=== PATIENT | male | born 1990 | race Caucasian/White ===

== ENCOUNTER 2023-04-15 16:35 | Outpatient (OUT) | payer OTHER, SELFPAY ==
--- NOTE | 2023-04-15 | XR_ITS ---
The [address] [address] Patient Name: ANGELIQUE CARRASCO MRN: [id number] date: 1990 Sex: M Assigned Patient Location: RAD Current Patient Location: RAD Accession/Order Number: [id number] Exam Date: 04/15/2023 16:45 Report Date: 04/15/2023 19:38 At the request of: ANDRADE MAS Procedure: XR knee RT 3V EXAM: XR knee RT 3V HISTORY: Right knee pain for the past 4 days with limited range of motion. M23.90 COMPARISON: None. TECHNIQUE: 3 views of the right knee were obtained. FINDINGS: There is no evidence of an acute fracture or dislocation. The joint spaces are intact. No osteochondral injury is identified. No focal osseous abnormality is identified. There is no evidence of a joint effusion. XR/XR knee RT 3V IMPRESSION: No acute fracture or dislocation. No significant degenerative changes are present, and there is no evidence of a joint effusion. Electronically authenticated by: DAVID JIMENEZ Date: 04/15/2023 19:38
== END 2023-04-15 16:36 | disposition home or self-care (01) ==
LOC: RAD 16:37
PROVIDERS: PCP Family Medicine; Visit Provider Family Medicine
DX: M23.90 Unspecified internal derangement of unspecified knee (principal)
CPT/HCPCS: 73562

== ENCOUNTER 2023-05-12 15:15 | Outpatient (OUT) | payer OTHER, SELFPAY ==
--- NOTE | 2023-05-12 15:26 | XR_ITS ---
The [address] [address] Patient Name: ANGELIQUE CARRASCO MRN: [id number] date: 1990 Sex: M Assigned Patient Location: RAD Current Patient Location: RAD Accession/Order Number: [id number] Exam Date: 05/12/2023 15:30 Report Date: 05/12/2023 15:46 At the request of: ANDRADE MAS Procedure: XR foreign body eye EXAMINATION: XR foreign body eye HISTORY: Foreign Body Eye COMPARISON: No relevant comparison available. FINDINGS: ORBITS: Negative for a metallic foreign body. OTHER: Negative. XR/XR foreign body eye IMPRESSION: No metallic foreign body in the orbits Electronically authenticated by: RANJANA WHITT Date: 05/12/2023 15:46
--- NOTE | 2023-05-12 15:26 | MR_ITS ---
[place] [id number] Patient Name: ANGELIQUE CARRASCO MRN: [id number] date: 1990 Sex: M Assigned Patient Location: [facility] Current Patient Location: [facility] Accession/Order Number: [id number] Exam Date: 05/12/2023 15:46 Report Date: 05/12/2023 20:21 At the request of: ANDRADE MAS Procedure: MR knee RT wo con EXAM: MR knee RT wo con HISTORY: Right knee pain COMPARISON: Knee x-rays 04/15/2023 TECHNIQUE: Multiplanar, multi sequential MRI sequences were performed FINDINGS: Small foci of bone marrow edema within the posterior medial aspect of the medial tibial plateau (axial 16 and coronal 20). Small knee effusion. No popliteal cyst, fracture, dislocation, subluxation or osseous lesion. The superficial subcutaneous soft tissues are free of edema, hematoma, mass or cyst. No muscle edema, hematoma, atrophy or fatty infiltration. Oblique undersurface tear of the medial meniscus body that communicates with the posterior horn leading edge (coronal 21 and sagittal 7-10). Mild edema of the medial meniscus posterior root ligament with no tear. The anterior ligament is unremarkable. The lateral meniscus and its respective root ligaments exhibit normal morphology. The anterior cruciate, posterior cruciate, medial collateral and lateral complex ligaments exhibit no thickening, tear or edema. No patella tilt or subluxation. Mild reactive edema of Hoffa's fat. The patella tendon and visualized extensor mechanism are unremarkable. The tricompartmental articular surfaces exhibit no chondral or osteochondral abnormality. MR/MR knee RT wo con IMPRESSION: 1. Tearing of the medial meniscus body and posterior horn. 2. Mild bone marrow edema within the posteromedial aspect of the medial tibial plateau and 3. Small knee effusion. Electronically authenticated by: RANJANA KEITH Date: 05/12/2023 20:21
== END 2023-05-12 15:16 | disposition home or self-care (01) ==
LOC: RAD 15:20
PROVIDERS: PCP Family Medicine; Visit Provider Family Medicine
DX: M23.90 Unspecified internal derangement of unspecified knee (principal); S83.241A Other tear of medial meniscus, current injury, right knee, initial encounter; M25.461 Effusion, right knee
CPT/HCPCS: 70030; 73721

== ENCOUNTER 2023-09-14 08:48 | Outpatient (OUT) | payer OTHER, SELFPAY ==
--- NOTE | 2023-09-14 08:54 | ECG_ITS ---
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
--- OUTSIDE RECORDS SUMMARY | 2023-09-14 09:05 | XMS_ITS | CCD ---
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 Name Role Phone Andrade Kaur MD Primary Care Provider [phone] ANDR[address] KAUR Consulting Unavailable DR ANDRADE KAUR Attending Unavailable NATASHA, DR ZAFAR Admitting Unavailable DR ANDRADE KAUR Primary Care Unavailable Andrade Kaur Primary Care Physician [phone] CONTRERAS, Mark Hazel Attending Unavailable NILLMark Attending Unavailable NILLMark Referring Unavailable NILLMark Attending Unavailable NILLMark Admitting Unavailable Medications Current Medications Medication Drug Class(es) Dates Sig (Normalized) Sig (Original) naproxen 500 mg oral tablet (5 sources) Nonsteroidal Anti-inflammatory Drug naproxen 500 MG tablet Take 500 mg by mouth as needed for Mild Pain (pain). 0 Active Problems Problem Classification Problem Date Documented Date Episodic/Chronic Adjustment disorders (1 source) Adjustment disorder with mixed disturbance of emotions AND conduct; Translations: [Adjustment disorder with mixed disturbance of emotions and conduct] Chronic Administrative/social admission (3 sources) Patient encounter status; Translations: [Other specified counseling] Episodic Essential hypertension (3 sources) Essential hypertension; Translations: [Essential (primary) hypertension] Chronic Headache; including migraine (3 sources) Migraine; Translations: [Migraine, unspecified, not intractable, without status migrainosus] Chronic Miscellaneous mental health disorders (1 source) Binge eating disorder; Translations: [Binge eating disorder] Chronic Other and unspecified benign neoplasm (2 sources) Lipoma of skin and subcutaneous tissue of trunk; Translations: [Benign lipomatous neoplasm of skin and subcutaneous tissue of trunk] Onset: 10-01-2022 Episodic Other and unspecified benign neoplasm (3 sources) Lipoma of anterior chest wall 10-01-2022 Episodic Other and unspecified benign neoplasm (1 source) Benign lipomatous tumor; Translations: [Benign lipomatous neoplasm, unspecified] Onset: 07-06-2023 Episodic Other circulatory disease (1 source) Elevated blood-pressure reading, without diagnosis of hypertension; Translations: [ELEVATED BP READING W/O DX HTN] Onset: 08-22-2021 Episodic Other circulatory disease (3 sources) Prehypertension 09-25-2022 Episodic Other connective tissue disease (3 sources) Impingement syndrome of shoulder region 09-25-2022 Episodic Other nervous system disorders (3 sources) H/O: migraine 05-07-2011 Episodic Other nutritional; endocrine; and metabolic disorders (8 sources) Body mass index 40+ - severely obese; Translations: [Morbid (severe) obesity due to excess calories] Onset: 07-16-2021 Chronic Other nutritional; endocrine; and metabolic disorders (4 sources) Obesity, unspecified; Translations: [OBESITY UNSPECIFIED] Onset: 08-07-2021 Chronic Other nutritional; endocrine; and metabolic disorders (3 sources) Body mass index 30+ - obesity 10-01-2022 Chronic Other upper respiratory disease (3 sources) Deviated nasal septum 08-12-2013 Episodic Residual codes; unclassified (2 sources) At risk of disease; Translations: [Other specified personal risk factors, not elsewhere classified] Episodic Residual codes; unclassified (1 source) At risk of apnea; Translations: [Other specified personal risk factors, not elsewhere classified] Episodic Residual codes; unclassified (1 source) Tobacco user; Translations: [Tobacco use] Onset: 10-01-2022 Episodic Residual codes; unclassified (3 sources) Insomnia 09-25-2022 Episodic Residual codes; unclassified (3 sources) Nicotine-filled electronic cigarette user 10-01-2022 Episodic Spondylosis; intervertebral disc disorders; other back problems (3 sources) Cervical disc disorder 09-25-2022 Chronic Unclassified (1 source) ERRONEOUS ENCOUNTER--DISREGARD Results Test Name Value Interpretation Reference Range Facil ity Ambulatory Visit Summaryon 0 12-16-2022 Ambulatory Visit Summary ANGELIQUE MATHEW :1990 Visit Date:12/16/2022 Ambulatory Visit Instructions Your Diagnosis Lipoma of anterior chest wall Your Care Team Attending Physician - CONTRERAS ROCHA, Mark Hazel Primary Care Physician - Andrade Kaur MD Procedures Performed Excision of cyst (12/04/2022), Tonsillectomy and adenoidectomy. Allergies No Known Allergies Problems Ongoing - Any problem that you are currently receiving treatment for. BMI 39.0-39.9,adult Borderline hypertension Cervical disc disease Insomnia Lipoma of anterior chest wall Shoulder impingement syndrome Vapes nicotine containing substance Historical - Any problem that you are no longer receiving treatment for. Deviated nasal septum H/O: migraine Normal [facility] General Surgery Office/Clini c Noteon 12-16-2022 General Surgery Office/Clinic Note Chief Complaint post operative follow up HPI Staff 12 day post operative follow up post excisional biopsy upper mid chest lipoma. Denies discomfort, no use of pain medication. Denies bleeding or drainage. Sutures intact. History of Present Illness 12 days s/p excisional biopsy intramuscular lipoma of upper chest wall; pathology consistent with lipoma. doing well, mild soreness, no drainage, minimal bruising; itching from hair growing back. Review of Systems ROS - Provider Constitutional: no fever, no sweats, no weight loss. Eyes: no glasses, no blurred vision, no visual loss. ENMT: no dentures, no hoarseness, no swallowing difficulties, no hearing loss, no ear infection(s), no nose bleeds. Cardiovascular: normal blood pressure, no chest pain, regular heartbeat, no heart murmur. Respiratory: no shortness of breath, no cough, no asthma, no wheezing. Gastrointestinal: no nausea, no vomiting, no diarrhea, no constipation, no blood in stool, no change in bowel habits, no abdominal pain, no hepatitis. Genitourinary: no kidney stones, no urine infection, no dysuria. Musculoskeletal: no pain, no weakness. Skin: no changing moles, no rash, no skin lumps. Neurologic: no seizures, no epilepsy, no headache. Psychiatric: no emotional or psychiatric problem. Heme/Lymph: no bleeding problems, no anemia, no blood clots, no transfusions. Allergy/Immunologic: no swollen lymph nodes/glands, no IV drug abuse. Other: Additional ROS info: Except as noted in the above Review of Systems and in the History of Present Illness, all other systems have been reviewed and are negative or noncontributory. Physical Exam skin: incision healing well, glue intact; no erythema or drainage, no ecchymosis Assessment/Plan 1. Lipoma of anterior chest wall (D17.1: Benign lipomatous neoplasm of skin and subcutaneous tissue of trunk) doing well; keep incision clean and dry; call with problems/questions. Follow-up With When Contact Information CONTRERAS ROCHA, Mark Hazel, SHERIDAN Only if needed [address] [place] [address]- Additional Instructions: Problem List/Past Medical History Ongoing BMI 39.0-39.9,adult Borderline hypertension Cervical disc disease Insomnia Lipoma of anterior chest wall Shoulder impingement syndrome Vapes nicotine containing substance Historical Deviated nasal septum H/O: migraine Procedure/Surgical History Excision of cyst (12/04/2022), Tonsillectomy and adenoidectomy. Medications No active medications Allergies No Known Allergies Social History Alcohol - Low Risk, 09/24/2019 Liquor, 1-2 times per year, 09/24/2019 Substance Abuse - Denies Substance Abuse, 05/07/2011 Tobacco - Low Risk, 09/24/2019 Former smoker, quit more than 30 days ago Tobacco Use:. Smokeless tobacco user within last 30 days Smokeless Tobacco Use:. Cigarettes, Vaping, 1 per day. Started age 25.0 Years. Yes, 10/01/2022 Family History COPD: Father. Heart disease: Father. Hypertension: Mother and Father. Immunizations Vaccine Date Status Comments influenza virus vaccine, inactivated - Not Given Patient Refuses SARS-CoV-2 mRNA (jonathon 5y-11y) vac - Not Given Patient Refuses diphtheria/pertussis, acel/tetanus adult 09/24/2019 Given [facility] Comment on above: Result Comment: Elec tronically Signed By: CONTRERAS ROCHA, Mark Hazel\.br\Date and Time Signed: 12/16/22 16:07 EDT IntraOperative Documentson 0 12-08-2022 IntraOperative Documents [id number]# 1.00CD:127 [facility] Discharge Instructionson Discharge Instructions [id number]# 1.00CD:127 [facility] IntraOperative Documentson 0 12-05-2022 IntraOperative Documents [id number]# 1.00CD:127 [facility] Main OR Intraoperative Recor don 12-05-2022 Main OR Intraoperative Record IntraOp Document Type FT Summary Primary Physician: Mark KERN MD Finalized Date/Time: 12/05/22 12:05:42 Pt. Name: ANGELIQUE MATHEW /Sex: 1990 Male Med Rec #: [id number] Physician: Mark KERN MD Financial #: [id number] Pt. Type: A Room/Bed: [place] [address] Admit/Disch: 12/04/22 10:23:46 - 12/04/22 15:25:00 Institution: Case Times FT Entry 1 Patient Times In Room 12/04/22 14:07:00 Out Room 12/04/22 15:07:00 Procedure Times Start 12/04/22 14:22:00 Stop 12/04/22 15:00:00 Anesthesia Times Last Modified By: Anne Marie Rios Ii 12/05/22 12:03:24 General Comments: 0.5% Local anesthesia given by Dr. Kern at 1422. MARCIA Noland 12/05/22 chart opened for chart review per Tamia Stafford RN. [place] Case Attendance FT Entry 1 Entry 2 Entry 3 Case Attendee CONTRERAS ROCHA, Leslye Brown Madison A Role Performed Surgeon - Primary Scrub - Primary Scrub - Primary Time In 12/04/22 14:07:00 12/04/22 14:07:00 12/04/22 14:07:00 Time Out 12/04/22 15:07:00 12/04/22 15:07:00 12/04/22 15:07:00 Procedure CYST LESION REMOVAL CYST LESION REMOVAL CYST LESION REMOVAL GENERAL ANES(.) GENERAL ANES(.) GENERAL ANES(.) Comments Preceptor Orientation Last Modified By: Anne Marie Rios Ii, Alfons Ii F Letrondo, Alfons Ii F 12/04/22 15:08:57 12/04/22 15:08:57 12/04/22 15:08:57 Entry 4 Entry 5 Entry 6 Case Attendee Brian KENNEDY, Anne Marie Briseno Ii, Terry T Role Performed Data Processing Consultant - Primary Data Processing Consultant - Primary Data Processing Consultant - Relief Time In 12/04/22 14:07:00 12/04/22 14:07:00 12/04/22 14:34:00 Time Out 12/04/22 14:34:00 12/04/22 15:07:00 12/04/22 15:07:00 Procedure CYST LESION REMOVAL CYST LESION REMOVAL CYST LESION REMOVAL GENERAL ANES(.) GENERAL ANES(.) GENERAL ANES(.) Comments Preceptor Orientation Last Modified By: Anne Marie Rios Ii, Alfons Ii F Letrondo, Alfons Ii F 12/04/22 15:08:57 12/04/22 15:08:57 12/04/22 15:08:57 Perioperative Protocols FT Pre-Care Text: Implements protective measures prior to operative or invasive procedure, confirms identity before the operative or invasive procedure, verifies operative procedure, surgical site, and laterality Entry 1 Procedure(s) CYST LESION REMOVAL Patient Identity Birthday, ID Band GENERAL ANES(.) Verified (select at Check, Patient least 2): Participation Consents / H and P Anesthesia Consent, Operative Site N/A Verified HandP, Surgery/Procedure Marking Verified Consent Surgical Site Yes Laterality Verified No Verified Procedure Verified Yes Correct Patient Yes Position Verified Availability Equipment, Medication PreOp Antibiotic No Verified (If Given Applicable) Time Out Mark KERN MD, Time Out Complete 12/04/22 14:19:00 Participants Leslye Warren Chaput, Madison A, Crosby RN, Ofelia Holguin, Anne Marie Rios Ii Outcomes Met? Yes Last Modified By: Anne Marie Rios Ii 12/04/22 14:25:35 Post-Care Text: The patient is free from signs and symptoms of injury caused by extraneous objects Allergy Information FT Pre-Care Text: Verifies allergies Entry 1 Allergies Reviewed? Yes Allergies Reviewed Self/Patient With Outcomes Met? Yes Last Modified By: Anne Marie Rios Ii 12/04/22 14:25:43 Post-Care Text: The patient received appropriate medication(s) safely administered during the perioperative period Surgical Procedures FT Entry 1 Procedure Description Procedure CYST LESION REMOVAL Modifiers . GENERAL ANES Surgeon Description EXCISIONAL BIOPSY LIPOMA MIDCHEST WALL UNDER LOCAL ANESTHESIA Primary Procedure Yes Primary Surgeon Mark KERN MD 12/04/22 14:22:00 Stop 12/04/22 15:00:00 Anesthesia Type Local Surgical Service General Wound Class 1 - Clean Last Modified By: Anne Marie Rios Ii 12/04/22 15:09:12 General Case Data FT Pre-Care Text: Classifies surgical wound, implements aseptic technique, initiates traffic control Entry 1 Case Information OR OR 6 FT Case Level Level 1 Wound Class 1 - Clean Specialty General Preop Diagnosis LIPOMA CHEST WALL Postop Same As Preop Yes Postop Diagnosis LIPOMA CHEST WALL Outcomes Met? Yes Last Modified By: Nydia RN, BSN, Inocencia 12/05/22 12:03:41 Post-Care Text: The patient is free from signs and symptoms of infection Skin Assessment (Pre Procedure) FT Pre-Care Text: Implements protective measures to prevent skin/ tissue injury due to thermal or mechanical sources Evaluates for signs and symptoms of physical injury to skin and tissue Entry 1 Skin Integrity Intact, [place], Warm, and Skin Abnormality No Dry Outcomes Met? Yes Last Modified By: Anne Marie Rios Ii 12/04/22 14:26:59 Post-Care Text: The patient is free from signs and symptoms of injury caused by extraneous objects Patient Positioning FT Pre-Care Text: Identifies physical alterations that require additional precautions for procedure-specific positioning, verifies pr (more content not included)... Normal [facility] Operative Reporton Operative Report SURGERY DATE: 12/04/2022 PREOPERATIVE DIAGNOSIS: Enlarging lipoma upper mid chest POSTOPERATIVE DIAGNOSIS: Intramuscular lipoma upper mid chest OPERATION: Excisional biopsy intramuscular lipoma upper mid chest ANESTHESIA: Local with 0.5% Marcaine plain ESTIMATED BLOOD LOSS: Less than 5 mL INDICATIONS AND CONSENT: The patient is a 31-year-old male with a long history of enlarging subcutaneous nodule in the upper mid chest consistent with a lipoma. Indications, risks, benefits, alternatives of proceeding with excisional biopsy under local anesthesia were explained extensively to the patient including risks of bleeding, infection, scarring, pain, recurrence, need for further surgery. All of his questions were answered. Informed consent was obtained. PROCEDURE: The patient was brought to the Operating Room and placed in the supine position. He was prepped and draped in the usual sterile fashion. The area around and underneath the area was then anesthetized with 0.5% Marcaine plain. An oblique incision was made over the long axis of the lesion and carried down through subcutaneous tissue using sharp dissection as well as needle tip electrocautery. There was noted to be a scarred deep intramuscular lipoma. This was carefully dissected free and sent off to Pathology. It was approximately 6 cm in greatest diameter. The wound was irrigated. There was good hemostasis. The deep tissues were reapproximated with interrupted 3-0 Monocryl suture as was the subcutaneous tissue. The skin was then closed with a running 4-0 subcuticular Monocryl suture and skin glue. Sterile pressure dressing was applied. Sponge and needle counts were correct x2 per nursing personnel. The patient tolerated the procedure well, was sent to Recovery Room in good condition. Mark Kern M.D. FACS ls Dictated: 12/04/2022 [id number] Transcribed: 12/05/2022 cc:Andrade Kaur M.D. [facility] Comment on above: Result Comment: Elec tronically Signed By: CONTRERAS ROCHA, Mark Hazel\.br\Date and Time Signed: 12/05/22 10:29 EDT Consent for Procedure/Surger yon 12-04-2022 Consent for Procedure/Surgery [id number]# 1.00CD:127 [facility] Consent for Treatmenton Consent for Treatment [id number] .00CD:127 [facility] Discharge Instructionson Discharge Instructions ANGELIQUE MATHEW :1990 Visit Date:12/04/2022 Inpatient Discharge Instructions Your Care Team Admitting Physician - Mark KERN MD Referring Physician - Mark KERN MD Reason for Your Visit E/O CHEST CYST Your Diagnosis Intramuscular lipoma Tests Performed Pathology Tissue Exam -- Results Pending -- Please visit your patient portal for your results or contact your primary care physician. Procedure History Tonsillectomy and adenoidectomy. What to do next Instructions From Your Doctor Event Name Event Result Discharge Instructions Freetext may shower tomorrow, remove dressing and leave open to air; no tub baths or swimming for 10 days; take ibuprofen as needed for pain. Discharge Activity Resume normal activities in 24 hours, Expect mild pain Discharge Restrictions No restrictions Discharge Diet(s) Regular Call Your Doctor For Persistent or heavy bleeding, Temperature above 101.5 degrees, Redness, swelling, or pus at operative site, Severe pain at the operative site Wound Care Remove dressing as instructed Remove Dressing On 1 Pharmacy Information [facility] Discharge Instructions Discharge Instructions New Follow Up Appointments after Discharge Follow Up with Mark KERN When: Within 7 to 10 days Where: [facility], [address] [address] [facility] (1) Test Results No qualifying data available. Allergies No Known Allergies Problems Ongoing - Any problem that you are currently receiving treatment for. BMI 39.0-39.9,adult Borderline hypertension Cervical disc disease Insomnia Lipoma of anterior chest wall Shoulder impingement syndrome Vapes nicotine containing substance Historical - Any problem that you are no longer receiving treatment for. Deviated nasal septum H/O: migraine Common Emergency Awareness Tips IS IT A STROKE? Act FAST and Check for these signs: FACE Does the face look uneven? ARM Does one arm drift down? SPEECH Does their speech sound strange? TIME Call at any sign of stroke Heart Attack Signs Chest discomfort: Most heart attacks involve discomfort in the center of the chest and lasts more than a few minutes, or goes away and comes back. It can feel like uncomfortable pressure, squeezing, fullness or pain. Discomfort in upper body: Symptoms can include pain or discomfort in one or both arms, back, neck, jaw or stomach. Shortness of breath: With or without discomfort. Other signs: Breaking out in a cold sweat, nausea, or lightheaded. Remember, MINUTES DO MATTER. If you experience any of these heart attack warning signs, call to get immediate medical attention! Patient Portal You may access all of your results and other medical record information on our secure patient portal. If you are not signed up for this yet, please contact [facility] [employer] at [phone] to get signed up today. Patient Name: ANGELIQUE MATHEW Ezio I have received this information and my questions have been answered. Patient/Representativ e Name: Patient/Representativ e Signature: Relationship to Patient: Witness Name/Signature: Date: Normal [facility] Comment on above: Result Comment: Elec tronically Signed By: Joshua KENNEDY, Jocelyn Álvarez\.br\Date and Time Signed: 12/04/22 15:19 EDT H&P Updateon 12-04-2022 H&P Update [id number] 1.00CD:127 Normal [facility] Inpatient Patient Summaryon 12-04-2022 Inpatient Patient Summary [place] [id number] [facility] Clinical Discharge Instructions PERSON INFORMATION Name: ANGELIQUE MATHEW PHYSICIANS Admitting Physician: CONTRERAS ROCHA, Mark Hazel Attending Physician: CONTRERAS ROCHA, Mark Hazel PCP: Natasha ROCHA, Andrade Discharge Diagnosis: Intramuscular lipoma Comment: PATIENT EDUCATION INFORMATION Instructions: Medication Leaflets: Follow up: With: Address: When: Mark KERN [facility] [place], [address], [facility] [address] [place] [id number] Business (1) Within 7 to 10 days MEDICATION LIST Comment: Kyara Gutierrez [facility] Main OR PACU II [facility] Main OR PACU II Record PACU Phase II Document Type FT Summary Primary Physician: Mark KERN MD Finalized Date/Time: 12/04/22 15:28:59 Pt. Name: ANGELIQUE MATHEW Ezio Wheat/Sex: 1990 Male Med Rec #: [id number] Physician: Mark KERN MD Financial #: [id number] Pt. Type: A Room/Bed: [facility] Admit/Disch: 12/04/22 10:23:46 - Institution: Case Times PACU II FT Pre-Care Text: Identifies barriers to communication and implements measures to provide psychological support and determines knowledge level Develops individualized plan of care, and ensures continuity of care Maintains patient's dignity and privacy, and maintains patient confidentiality Identifies and reports philosophical, cultural, and spiritual beliefs and values Identifies individual values and wishes concerning care administers prescribed antibiotic therapy and immunizing agents as ordered, Evaluates postoperative tissue perfusion Implements thermoregulation measures, and monitors body temperature Evaluates postoperative respiratory status Evaluates postoperative cardiac status Evaluates postoperative neurological status Assesses pain control, collaborated in initiating patient-controlled analgesia and implements alternative methods of pain control Verifies allergies, administers prescribed medications and solutions, evaluates response to medications Entry 1 In PACU II 12/04/22 15:05:00 Discharge from PACU 12/04/22 15:25:00 II Outcomes Met? Yes Last Modified By: Lexii Castañeda RN 12/04/22 15:28:57 Post-Care Text: The patient demonstrates knowledge of the expected response to the operative or invasive procedure The patient's care is consistent with the individualized perioperative plan of care The patient's right to privacy is maintained The patient's value system, lifestyle, ethnicity, and culture are considered, respected, and incorporated into the perioperative plan of care The patient participates in decisions affecting his or her perioperative plan of care. The patient is free from signs and symptoms of infection The patient has wound/tissue perfusion consistent with or improved from baseline levels established preoperatively The patient is at or returning to normothermia at the conclusion of the immediate postoperative period The patient's respiratory function is consistent with or improved from baseline levels established preoperatively The patient's cardiovascular status is consistent with or improved from baseline levels established preoperatively The patient's neurological status is consistent with or improved from baseline levels established preoperatively The patient demonstrates and/or reports adequate pain control throughout the perioperative period The patient received appropriate medication(s), safely administered during the perioperative period Finalized By: Lexii Castañeda RN Document Signatures Signed By: Lexii Castañeda RN 12/04/22 15:28 [facility] Main OR Preoperative Recordo n 12-04-2022 Main OR Preoperative Record Holding Area Document Type FT Summary Primary Physician: Mark KERN MD Finalized Date/Time: 12/04/22 10:49:36 Pt. Name: ANGELIQUE MATHEW Ezio Mendoza./Sex: 1990 Male Med Rec #: [id number] Physician: Mark KERN MD Financial #: [id number] Pt. Type: A Room/Bed: [place] [address] Admit/Disch: 12/04/22 10:23:46 - Institution: Case Times Holding FT Pre-Care Text: Verifies consent for planned procedure, identifies individual values and wishes concerning care, includes family members in perioperative teaching Secures patient's records' belongings, and valuables, maintains patient's dignity and privacy, and maintains patient confidentiality Entry 1 In Holding 12/04/22 10:30:00 Outcomes Met? Yes Last Modified By: Lexii Castañeda RN 12/04/22 10:44:31 Post-Care Text: The patient participates in decisions affecting his or her perioperative plan of care The patient's right to privacy is maintained Surgery Checklist FT Entry 1 Patient Birthday, ID Band Procedure Blood Consent, History Identification: Check, Patient Verification: and Physical, Surgical Participation Consent, With Family, With Patient NPO after Midnight: Yes Case Cancelled in No Holding Area see comments below for reason Last Modified By: Lexii Castañeda RN 12/04/22 10:49:33 Finalized By: Lexii Castañeda RN Document Signatures Signed By: Lexii Castañeda RN 12/04/22 10:49 Normal [facility] Outpatient Surgery Discharge Instructionon 12-04-2022 Outpatient Surgery Discharge Instruction [address] [address] Patient Discharge Instructions PERSON INFORMATION Name: ANGELIQUE MATHEW Date of : 1990 Current Date: 12/04/2022 15:14:55 PHYSICIANS Admitting Physician: Mark KERN MD Discharge Diagnosis: Intramuscular lipoma ANGELIQUE MATHEW has been given the following list of follow-up instructions, prescriptions, and patient education materials: PATIENT FOLLOW-UP INFORMATION Diet: Regular Discharge Activity: Resume normal activities in 24 hours, Expect mild pain Discharge Restrictions: No restrictions Call Your Doctor For: Persistent or heavy bleeding, Temperature above 101.5 degrees, Redness, swelling, or pus at operative site, Severe pain at the operative site Wound Care Instructions: Remove dressing as instructed Remove Your Dressing In 1 Days Additional Instructions: may shower tomorrow, remove dressing and leave open to air; no tub baths or swimming for 10 days; take ibuprofen as needed for pain. IF UNABLE TO CONTACT YOUR PHYSICIAN AND YOU FEEL IT IS AN EMERGENCY, GO TO THE NEAREST EMERGENCY ROOM OR CALL 911 I, LUNA ANGELIQUE Holguin, have received the attached patient education materials/instruction s and have verbalized understanding: May we do a follow up call? Yes No I was present when discharge instructions were given Patient Signature Date Clinican/Nurse Signature Date Follow up: With: Address: When: Mark KERN [address] [place] [address] [place], [address], [address] [address] Business (1) Within 7 to 10 days Pharmacy Information: [facility] Garcia You may receive a survey from [employer] asking you to rate your care experience. Your feedback is important and will help us understand what we do well and how we can improve the quality of care we provide to you, your loved ones and our community. It?s an honor to serve you. Thank you for choosing [facility] HERE ARE THE MEDICATION CHANGES THAT OCCURRED DURING YOUR HOSPITAL STAY PATIENT EDUCATION INFORMATION Instructions: Medication Leaflets: [facility] Patient Education - Texton 0 12-04-2022 Patient Education - Text [facility] Pre-Certification Formon Pre-Certification Form [id number]# 1.00CD:127 [facility] Consent for Procedure/Surger yon 11-14-2022 Consent for Procedure/Surgery [id number]# 1.00CD:127 [facility] Consent for Procedure/Surger yon 10-02-2022 Consent for Procedure/Surgery [id number] .00CD:127 [facility] Facesheeton 10-02-2022 Facesheet [id number] .00CD:127 [facility] Ambulatory Visit Summaryon 0 10-01-2022 Ambulatory Visit Summary ANGELIQUE MATHEW :1990 Visit Date:10/01/2022 Ambulatory Visit Instructions Your Diagnosis Lipoma of anterior chest wall Your Care Team Attending Physician - CONTRERAS ROCHA, Mark Hazel Primary Care Physician - Andrade Kaur MD Procedures Performed Tonsillectomy and adenoidectomy. Discharge Vitals Heart Rate (Peripheral) 72 Respiratory Rate 16 Blood Pressure 140/90 Height 180.34 cm Height 71 in Weight 127 kg Weight 279.4 lb BMI 39.05 Medications and Immunizations Administered Not Given influenza virus vaccine, inactivated, Patient Refuses SARS-CoV-2 mRNA (tozinameran 5y-11y) vac, Patient Refuses Allergies No Known Allergies Problems Ongoing - Any problem that you are currently receiving treatment for. BMI 39.0-39.9,adult Borderline hypertension Cervical disc disease Insomnia Lipoma of anterior chest wall Shoulder impingement syndrome Historical - Any problem that you are no longer receiving treatment for. Deviated nasal septum H/O: migraine Normal [facility] Vital Signs Date Time Vital Sign Value Performing Clinician Faci lity 12-04-2022 10:46-0400 Diastolic blood pressure 88 mm[Hg] Mark CONNORSL [facility] 12-04-2022 10:46-0400 Heart rate 81 /min Mark CONNORSL [facility] 12-04-2022 10:46-0400 Mean blood pressure 107 mm[Hg] Mark CONNORSL [facility] 12-04-2022 10:46-0400 Systolic blood pressure 144 mm[Hg] Mark buySAFEL [facility] 12-04-2022 10:46-0400 Body temperature 97.88 [degF] Mark buySAFEL [facility] 12-04-2022 10:46-0400 Heart rate 87 /min Mark buySAFEL [facility] 12-04-2022 10:46-0400 SaO2% (BldA) [Mass fraction] 98 % Mark buySAFEL [facility] 12-04-2022 10:45-0400 Diastolic blood pressure 92 mm[Hg] Mark NILL [facility] 12-04-2022 10:45-0400 Mean blood pressure 112 mm[Hg] Mark NILL [facility] 12-04-2022 10:45-0400 Systolic blood pressure 152 mm[Hg] Mark NILL [facility] 10-01-2022 15:24-0400 Blood Pressure Location Mark NILL [facility] [place] 10-01-2022 15:24-0400 Diastolic blood pressure 90 mm[Hg] Mark NILL [facility] [place] 10-01-2022 15:24-0400 Heart rate 72 /min Mark NILL [facility] [place] 10-01-2022 15:24-0400 Respiratory rate 16 /min Mark NILL [facility] [place] 10-01-2022 15:24-0400 Systolic blood pressure 140 mm[Hg] Mark NILL [facility] [place] 09-04-2021 13:12-0400 Body mass index (BMI) [Ratio] 41.37 kg/m2 Mili Torres RD Work Phone: [facility] 09-04-2021 13:12-0400 Body weight 134.[address] Work Phone: [facility] 07-16-2021 13:52-0500 Body height 180.3 cm Kaylyn Osullivan CUSTOMER SUPPORT ANALYST Work Phone: [facility] 07-16-2021 13:52-0500 Body mass index (BMI) [Ratio] 42.93 kg/m2 Kaylyn Osullivan CUSTOMER SUPPORT ANALYST Work Phone: [facility] 07-16-2021 13:52-0500 Body weight 139.62 kg Kaylyn Osullivan CUSTOMER SUPPORT ANALYST Work Phone: [employer] 07-16-2021 13:52-0500 Diastolic blood pressure 90 mm[Hg] Kaylyn Osullivan CUSTOMER SUPPORT ANALYST Work Phone: [employer] 07-16-2021 13:52-0500 Heart rate 119 /min Kaylyn Osullivan CUSTOMER SUPPORT ANALYST Work Phone: [employer] 07-16-2021 13:52-0500 SaO2% (BldA) [Mass fraction] 97 % Kaylyn Osullivan CUSTOMER SUPPORT ANALYST Work Phone: [employer] 07-16-2021 13:52-0500 Systolic blood pressure 136 mm[Hg] Kaylyn Osullivan CUSTOMER SUPPORT ANALYST Work Phone: [facility] Encounters Encounter Date Encounter Type Care Provider Facility Start: 12-16-2022 End: 12-17-2022 ambulatory Mark R NILL Facility:[facility] Start: 12-16-2022 End: 12-16-2022 Patient encounter procedure Mark R NILL [facility] Start: 12-04-2022 End: 12-04-2022 ambulatory Mark R NILL Facility:[facility] Start: 12-04-2022 End: 12-04-2022 Admission to same day surgery center Mark R NILL [facility] Start: 10-01-2022 End: 10-02-2022 ambulatory Mark R NILL Facility: [facility] Start: 10-01-2022 End: 10-01-2022 Patient encounter procedure Mark R NILL General Surgery Nill/Said [place] Start: 09-17-2022 ambulatory Mark NILL Facility: [facility] Start: 11-18-2021 End: 11-18-2021 Patient encounter procedure Stephen ThomasyD Work Phone: [facility] Comment on above: ERRONEOUS ENCOUNTER- -DISREGARD (Primary Dx) Start: 09-04-2021 End: 09-04-2021 Office outpatient new [address] Work Phone: [facility] Comment on above: Essential hypertensi on; Obesity, morbid, BMI 40.0-49.9; Encounter for pre-bariatric surgery counseling and education; At risk for obstructive sleep apnea; Migraine without status migrainosus, not intractable, unspecified migraine type Start: 08-07-2021 End: 08-07-[address] ANDRADE KAUR Facility: Start: 07-16-2021 End: 07-16-2021 Office outpatient new 45 minutes Kaylyn Osullivan CNP Work Phone: [facility] Comment on above: Essential hypertensi on (Primary Dx); Obesity, morbid, BMI 40.0-49.9; Encounter for pre-bariatric surgery counseling and education; At risk for obstructive sleep apnea; Migraine without status migrainosus, not intractable, unspecified migraine type Procedures Date Procedure Procedure Detail Performing Clinician Start: 12-04-2022 Excision of cyst Leroyae salvador CONTRERAS Start: 09-19-2021 End: 09-19-2021 Psychiatric diagnostic evaluation Binge-eating disorder, mild Stephen Blanco PsyD Work Phone: Comment on above: Binge-eating disorde r, mild (Primary Dx); Adjustment disorder with mixed disturbance of emotions and conduct Tonsillectomy and adenoidectomy Mark KERN Plan of Treatment Date Care Activity Detail Author Start: 02-06-2022 End: 02-06-2022 Nutrition therapy 02/06/2022 Clinical Support Encounter Nutrition and Dietetics Cristiano Pickens, RD [address] [place] [address] [facility] Start: 01-30-2022 Influenza vaccination INFLUENZ A VACCINE (Season Ended) [facility] Start: 01-02-2022 End: 01-02-2022 Admission to same day surgery center 01/02/2022 Telemed Clin Support General Surgery Joy Reynolds, RD [address] [place] [address] [facility] Start: 01-02-2022 End: 01-02-2022 Nutrition therapy 01/02/2022 Telemed Clin Support Nutrition and Dietetics Mili Torres, MICHELLE [address] [place] [phone] [facility] Start: 12-12-2021 End: 12-12-2021 Admission to same day surgery center 12/12/2021 Telemed Clin Support General Surgery Rodolfo Joy, RD [address] [place] [address] [facility] Start: 12-12-2021 End: 12-12-2021 Nutrition therapy 12/12/2021 Telemed Clin Support Nutrition and DietMili Hollis, MICHELLE [address] [place] [phone] [facility] Start: 11-18-2021 End: 11-18-2021 Patient encounter procedure 11/18/2021 Office Visit Psychology Stephen Blanco, PsAngle [address] [place] [address] [facility] Start: 11-07-2021 End: 11-07-2021 Nutrition therapy 11/07/2021 Telemed Clin Support Nutrition and DietMili Hollis, MICHELLE [address] [place] [address] [facility] Start: 10-15-2021 End: 10-15-2021 Nutrition therapy 10/15/2021 Telemed Clin Support Nutrition and Dietetics Mili Torres, MICHELLE [address] [place] [phone] [facility] Start: 09-19-2021 End: 09-19-2021 Patient encounter procedure 09/19/2021 Office Visit Psychology Stephen Blanco, PsyD [address] [place] [phone] [facility] Start: 09-18-2021 End: 09-18-2021 Patient encounter procedure 09/18/2021 Lab Encounter Clinical Pathology/Laboratory Medicine Rafael King MD [address] [place] [address] [facility] Start: 07-18-2021 End: 07-18-2022 B12/folate level B12 & FOLATE Lab Routine Essential hypertension Obesity, morbid, BMI 40.0-49.9 Encounter for pre-bariatric surgery counseling and education At risk for obstructive sleep apnea Migraine without status migrainosus, not intractable, unspecified migraine type Expected: 07/18/2021, Expires: 07/18/2022 [employer] Comment on above: Expected: 07/18/2021 , Expires: 07/18/2022 Start: 07-18-2021 End: 07-18-2022 CBC,PLATELETS CBC,PLATELETS Lab Routine Essential hypertension Obesity, morbid, BMI 40.0-49.9 Encounter for pre-bariatric surgery counseling and education At risk for obstructive sleep apnea Migraine without status migrainosus, not intractable, unspecified migraine type Expected: 07/18/2021, Expires: 07/18/2022 [employer] Comment on above: Expected: 07/18/2021 , Expires: 07/18/2022 Start: 07-18-2021 End: 07-18-2022 Comprehensive metabolic 2000 panel - Serum or Plasma COMPREHENSIVE METABOLIC PANEL Lab Routine Essential hypertension Obesity, morbid, BMI 40.0-49.9 Encounter for pre-bariatric surgery counseling and education At risk for obstructive sleep apnea Migraine without status migrainosus, not intractable, unspecified migraine type Expected: 07/18/2021, Expires: 07/18/2022 [employer] Comment on above: Expected: 07/18/2021 , Expires: 07/18/2022 Start: 07-18-2021 End: 07-18-2022 Hemoglobin A1c/Hemoglobin.total in Blood HEMOGLOBIN A1C Lab Routine Essential hypertension Obesity, morbid, BMI 40.0-49.9 Encounter for pre-bariatric surgery counseling and education At risk for obstructive sleep apnea Migraine without status migrainosus, not intractable, unspecified migraine type Expected: 07/18/2021, Expires: 07/18/2022 [facility] Comment on above: Expected: 07/18/2021 , Expires: 07/18/2022 Start: 07-18-2021 End: 07-18-2022 IRON/IRON BINDING/TRANSFERRIN IRON/IRON BINDING/TRANSFERRIN Lab Routine Essential hypertension Obesity, morbid, BMI 40.0-49.9 Encounter for pre-bariatric surgery counseling and education At risk for obstructive sleep apnea Migraine without status migrainosus, not intractable, unspecified migraine type Expected: 07/18/2021, Expires: 07/18/2022 [facility] Comment on above: Expected: 07/18/2021 , Expires: 07/18/2022 Start: 07-18-2021 End: 07-18-2022 LIPID PANEL W CALCULATED LDL LIPID PANEL W CALCULATED LDL Lab Routine Essential hypertension Obesity, morbid, BMI 40.0-49.9 Encounter for pre-bariatric surgery counseling and education At risk for obstructive sleep apnea Migraine without status migrainosus, not intractable, unspecified migraine type Expected: 07/18/2021, Expires: 07/18/2022 [facility] Comment on above: Expected: 07/18/2021 , Expires: 07/18/2022 Start: 07-18-2021 End: 07-18-2022 Standard ECG ECG ECG Routine Essential hypertension Obesity, morbid, BMI 40.0-49.9 Encounter for pre-bariatric surgery counseling and education At risk for obstructive sleep apnea Migraine without status migrainosus, not intractable, unspecified migraine type Expected: 07/18/2021, Expires: 07/18/2022 [facility] Comment on above: Expected: 07/18/2021 , Expires: 07/18/2022 Start: 07-18-2021 End: 07-18-2022 TSH W/FT4 REFLEX TSH W/FT4 REFLEX Lab Routine Essential hypertension Obesity, morbid, BMI 40.0-49.9 Encounter for pre-bariatric surgery counseling and education At risk for obstructive sleep apnea Migraine without status migrainosus, not intractable, unspecified migraine type Expected: 07/18/2021, Expires: 07/18/2022 [facility] Comment on above: Expected: 07/18/2021 , Expires: 07/18/2022 Start: 07-18-2021 End: 07-18-2022 VITAMIN B1 VITAMIN B1 Lab Routine Essential hypertension Obesity, morbid, BMI 40.0-49.9 Encounter for pre-bariatric surgery counseling and education At risk for obstructive sleep apnea Migraine without status migrainosus, not intractable, unspecified migraine type Expected: 07/18/2021, Expires: 07/18/2022 [facility] Comment on above: Expected: 07/18/2021 , Expires: 07/18/2022 Start: 07-18-2021 End: 07-18-2022 VITAMIN D (25-HYDROXY,TOTAL) VITAMIN D (25-HYDROXY,TOTAL) Lab Routine Essential hypertension Obesity, morbid, BMI 40.0-49.9 Encounter for pre-bariatric surgery counseling and education At risk for obstructive sleep apnea Migraine without status migrainosus, not intractable, unspecified migraine type Expected: 07/18/2021, Expires: 07/18/2022 [facility] Comment on above: Expected: 07/18/2021 , Expires: 07/18/2022 Start: 01-30-2021 Influenza vaccination INFLUENZA VACC INE (#1) [facility] Start: 2009 Third diphtheria, tetanus and acellular pertussis (DTaP) vaccination TDAP (ADULT) [facility] Start: 2008 Tetanus vaccination TETANUS [facility] Start: 2005 HIV screening HIV SCREENING DISCUSSION [facility] Start: 1996 PNEUMOCOCCAL VACCINE SERIES (1 - PCV) PNEUMOCOCCAL VACCINE SERIES (1 - PCV) [facility] Start: 1996 PNEUMOCOCCAL VACCINE SERIES (1 of 2 - PPSV23) PNEUMOCOCCAL VACCINE SERIES (1 of 2 - PPSV23) [facility] Start: 11-21-1995 COVID-19 VACCINE (#1) COVID-19 VACCI NE (#1) [facility] Start: 11-21-1995 COVID-19 VACCINE (1) COVID-19 VACCIN E (1) [facility] Start: 1990 Hepatitis C antibody , confirmatory test HEPATITIS C VIRUS SCREENING [facility] Diagnostic radiograp hy of chest, combined PA and lateral XR CHEST PA AND LATERAL Imaging Routine Essential hypertension Obesity, morbid, BMI 40.0-49.9 Encounter for pre-bariatric surgery counseling and education At risk for obstructive sleep apnea Migraine without status migrainosus, not intractable, unspecified migraine type Ordered: 07/18/2021 [facility] Comment on above: Ordered: 07/18/2021 Immunizations Immunization Date Immunization Notes Care Provider Fa cility 09-24-2019 tetanus toxoid, reduced diphtheria toxoid, and acellular pertussis vaccine, adsorbed Mark KERN [facility] NEGATED: Highlighted row has not occurred!10-01-2022 influenza virus vaccine, unspecified formulation Mark CONTRERAS [facility] [place] NEGATED: Highlighted row has not occurred!10-01-2022 SARS-CoV-2 mRNA (tozinameran 5y-11y) vaccine Mark KERN [facility] [place] Payers Date Payer Category Payer Unknown [id number] 2021 Unknown [employer] [facility] [id number] 2021-Present [address] [place] [address] [id number] 2021 Unknown [employer] [facility] [id number] 2021-Present [address] [place] [address] [id number] 1990 Unknown [id number] 1990 Unknown [id number] 1990 Unknown [id number] 1990 Unknown [id number] 1959 Unknown [id number] Social History Date Type Detail Facility Start: 07-02-2018 Tobacco smoking stat us [facility] Smokes tobacco daily [facility] Start: 07-02-2018 History of tobacco use Cigarette Smo ker [facility] Start: 07-16-2021 Cigarettes smoked current (pack per day) - Reported 0.25 [facility] Start: 07-16-2021 Tobacco use and exposure Smoke less tobacco non-user [facility] Start: 07-16-2021 Alcohol intake Ex-drinker (finding) [facility] Start: 1990 Sex Assigned At Not on file A [facility] Start: 10-01-2022 Tobacco smoking status Ex-smoker (fi nding) [facility] Tobacco smoking status Smokeless tobacco user within last 30 days [facility] [place] Sex Assigned At Male [facility] Functional Status Date Assessment Result Facility 11-12-2022 Functional Status N/A [facility] 10-01-2022 Functional Status N/A [facility] Clinical Notes 07-16-2021 to 12-05-2022 Stephen Blanco, WilliamyD - 11/18/2021 9:00 AM EDTPatient InstructionsStephen Blanco PsyD - 09/19/2021 8:00 AM EDTPatient InstructionsAddendum Note - Kaylyn Osullivan, CUSTOMER SUPPORT ANALYST - 07/16/2021 2:00 PM EST Note Date & Type Note Facility 12-05-2022 Hospital Discharg e instructions Follow Up Care 12/05/2022 10:15:15 With:CONTRERAS ROCHA, SHERIDAN Jordan Address: [address] [place] [address]- When: only if needed [facility] [place] 11-14-2022 Note [id number]:127 [facility] 10-02-2022 Hospital Discharg e instructions Follow Up Care 10/02/2022 08:38:08 With:Mark KERN Address: [address] [place] [address], [address] [address]- Business (1) When:7 to 10 days [facility] 10-01-2022 Note Chief Complaint consultation for chest mass HPI Staff 31 year old male presents on consultation from Dr. Kaur for chest mass. Reports mass presents several years with gradual increase in size. Denies this being painful or tender. Never opened or drained. Never been infected. History of Present Illness 31 yo male referred for chest wall mass; patient reports over 5 year h/o enlarging anterior chest wall mass; nontender, no skin changes; no injury to area; no h/o other similar lumps or fmhx of lipomas; denies asa or NSAID use; vapes nicotine-containing substances daily. Review of Systems PHQ Score Initial Depression Screen Score: 0 ROS - Provider Constitutional: no fever, no sweats, no weight loss. Eyes: no glasses, no blurred vision, no visual loss. ENMT: no dentures, no hoarseness, no swallowing difficulties, no hearing loss, no ear infection(s), no nose bleeds. Cardiovascular: normal blood pressure, no chest pain, regular heartbeat, no heart murmur. Respiratory: no shortness of breath, no cough, no asthma, no wheezing. Gastrointestinal: no nausea, no vomiting, no diarrhea, no constipation, no blood in stool, no change in bowel habits, no abdominal pain, no hepatitis. Genitourinary: no kidney stones, no urine infection, no dysuria. Musculoskeletal: no pain, no weakness. Skin: no changing moles, no rash, yes skin lumps. Neurologic: no seizures, no epilepsy, no headache. Psychiatric: no emotional or psychiatric problem. Heme/Lymph: no bleeding problems, no anemia, no blood clots, no transfusions. Allergy/Immunologic: no swollen lymph nodes/glands, no IV drug abuse. Other: Additional ROS info: Except as noted in the above Review of Systems and in the History of Present Illness, all other systems have been reviewed and are negative or noncontributory. Physical Exam Vitals & Measurements HR: 72(Peripheral) RR: 16 BP: 140/90 HT: 71 in HT: 180.34 cm WT: 127 kg WT: 279.4 lb BMI: 39.05 HEENT: normal conjunctiva, sclera clear, no scleral icterus, EOM intact, PERRLA, oral mucosa moist without lesions. Neck: trachea midline, no mass, symmetric, no thyromegaly or nodules, no adenopathy Respiratory: lungs CTA, respirations non labored. Cardiovascular: regular rate and rhythm, no murmur, no pedal edema or varicosities. Lymphatic: no cervical adenopathy, no supraclavicular adenopathy Musculoskeletal: normal gait, digits and nails without infection, nodes, cyanosis, clubbing. Skin: no rashes, no lesions, no ulcers, 4 x 5 cm subcutaneous mass mid anterior chest wall, soft, no skin changes, nontender. Psychiatric/Neuro: oriented to time, place, person, judgement normal, affect appropriate for age, insight intact, no focal deficits. Tests: review of old records completed, Discussed surgical options, risks, and possible complications with patient. Assessment/Plan 1. Lipoma of anterior chest wall (D17.1: Benign lipomatous neoplasm of skin and subcutaneous tissue of trunk) plan excisional biopsy under local anesthesia at [facility], informed consent obtained. 2. Vapes nicotine containing substance (Z72.0: Tobacco use) We strongly recommend to quit tobacco use. Cigarette smoking harms nearly every organ of the body, causes many diseases, and reduces the health of smokers in general. Quitting smoking lowers your risk for smoking-related diseases and can add years to your life. We encourage you to visit www.smokefree.gov access to helpful resources including free telephone support. If you decide on prescription treatment to help you quit, your family doctor would be happy to provide these. Follow-up No qualifying data available Problem List/Past Medical History Ongoing BMI 39.0-39.9,adult Borderline hypertension Cervical disc disease Insomnia Lipoma of anterior chest wall Shoulder impingement syndrome Vapes nicotine containing substance Historical Deviated nasal septum H/O: migraine Procedure/Surgical History Tonsillectomy and adenoidectomy. Medications No active medications Allergies No Known Allergies Social History Alcohol - Low Risk, 09/24/2019 Liquor, 1-2 times per year, 09/24/2019 Substance Abuse - Denies Substance Abuse, 05/07/2011 Tobacco - Low Risk, 09/24/2019 Former smoker, quit more than 30 days ago Tobacco Use:. Smokeless tobacco user within last 30 days Smokeless Tobacco Use:. Cigarettes, Vaping, 1 per day. Started age 25.0 Years. Yes, 10/01/2022 Family History COPD: Father. Heart disease: Father. Hypertension: Mother and Father. Immunizations Vaccine Date Status Comments influenza virus vaccine, inactivated - Not Given Patient Refuses SARS-CoV-2 mRNA (tozinameran 5y-11y) vac - Not Given Patient Refuses diphtheria/pertussis, acel/tetanus adult 09/24/2019 Given [facility] Comment on above: Result Comment: Elec tronically Signed By: CONTRERAS ROCHA, Mark Lopez\Date and Time Signed: 10/01/22 16:21 EDT 11-18-2021 History of Presen t illness Narrative Bariatric Feedback Session Name: Angelique Mathew Pt no show no call for feedback. Stephen Blanco PsyD documented in this encounter [facility] 09-19-2021 Instructions Stephen Blanco PsyD - 09/19/2021 10:11 AM EDT 1. Emotional eating may be an issue. Often boredom. Patient should make a written list of adaptive behaviors to perform in replacement of boredom eating. 2. This patient should learn and practice adaptive coping and relaxation skills. This will be discussed at our feedback session. Examples include but are not limited to: Deep breathing exercises. Progressive muscle relaxation. Guided imagery. Meditation. 3. Has plan to get back into exercise. Check on this. 4. Pt needs to attend counseling to address son, brothers, self esteem, and doing all he can to do the best with bariatric surgery. Develop a new mindset about food. Pt should attend at least 2 sessions of counseling before returning to see me for feedback. Pt should sign a release for Dr. Stephen Blanco's evaluation to be sent to their counselor of choice. Pt should sign a release for their mental health notes to be sent to Dr. Stephen Blanco for review prior to the feedback session. documented in this encounter [facility] 09-19-2021 History of Presen t illness Narrative Pre-Bariatric Surgery Psychological Evaluation Name: Angelique Mathew : 1990 Age: 30 y.o. Sex: male [address]: [address] [place] [address] Date of Evaluation: 09/19/2021 Examiner: Stephen Blanco PsyD Time of Diagnostic Evaluation: 9:27 AM Psychological Codes Used 49462 Psychological Diagnostic Interview 21091 Test Administration and Scoring (1st 30 minutes) 84230 Test Administration and Scoring (additional 30 minutes) 96741 Psychological Testing Services (1st 60 minutes) 09928 Psychological Testing Services (additional 60 minutes) Psychological Testing Table Code Date Time Spent Units Billed 45989 09/19/2021 NA 1 38029 09/19/2021 30 1 48642 09/19/2021 42 1 [id number] 09/19/2021 60 1 Referring provider: Kaylyn Osullivan CNP This pt will be seen for a feedback session at a later date. That service will be billed under the code 72451 which will relate back to this psychological evaluation and testing. Reason for Referral: [facility] and Dr King or Dr Peoples have referred Angelique Mathew for psychological evaluation to determine suitability for bariatric surgery. Use of this evaluation for other than the stated purpose is not recommended. Angelique Mathew is aware of the purpose of this evaluation and that the results will be sent to Dr King or Dr Peoples and the bariatric team. Sources of Information: * Clinical Interview with Angelique Mathew * [place] Multiphasic Personality Inventory - 2 (MMPI-2) * Binge Eating Scale History of Present Illness (Weight and Eating Behavior): Current Height: Ht Readings from Last 3 Encounters: 07/16/21 1.803 m (5' 11 ) Last 3 Documented Weights: Wt Readings from Last 3 Encounters: 09/04/21 134.5 kg (296 lb 9.6 oz) 07/16/21 (!) 139.6 kg (307 lb 12.8 oz) Most Recent BMI: BMI Readings from Last 3 Encounters: 09/04/21 41.37 kg/m 07/16/21 42.93 kg/m Highest Adult Weight: 313 pounds Net Weight Gained or Lost in Last 6 Months: Lost 16 pounds Net Weight Gained or Lost in Last 5 Years: Gained 80 pounds First Attempt at Weight Loss: 14 years of age Percent of Adult Life Spent Dietin % Number of Times Patient Has Lost 20 Lbs. or More: 15 when in wrestling in [employer] [facility] Most Significant Weight Loss: 80 pounds Supervised Weight Loss Program at This Time: Seeing a physician for weight loss medication: Yes, with our nutrition department. No Support for Surgery From Friends and Family: Yes, two brothers who have done the surgery. Reasons for Pursuing Bariatric Surgery: Self esteem, health improvements. Bariatric Surgery Knowledge: Who is your bariatric surgeon? Dr. King Which surgery are you discussing? Sleeve Why does this surgery seem best for you? Less invasive. Knowledge of Procedure: She will remove about 80% of stomach. Knowledge of Risks: Infection, bleeding, dehydration, , ulcer. How many times have you met with nutrition? 1 Identify Lifestyle Changes Needed for Success Post Surgery: Yes Eat protein first. Eat more protein. Yes Eat less sugars, bad carbohydrates and the bad fats. Yes Eat 5-6 times per day, small portions. Small plates and utensils. Yes Chew 20-30 times. Yes Drink more water. 64 oz. Yes Do more exercise. Yes Changes have to be forever. Food choices: Sweets in diet currently Excess consumption of starchy carbohydrates Excess consumption of high fat foods No Yes No Eating Schedule: Breakfast Snacks Lunch Snacks Supper Snacks No 0 No 1 Yes 0 History of eating one time per day. Binge Eating Symptoms (last 6 months): Large volume in discrete period of time Yes Loss of control over amount or choice Yes More rapid consumption than normal Yes Eating until uncomfortably full Yes Eating large amounts when not hungry Yes Embarrassed about size of meal - eats alone Yes Disgust, depression or guilt after overeating Yes Marked emotional distress associated with binge eating Yes Times per week 4-5 Most common binge food Pasta mash potatoe Most common time of day dinner Binge Eating History Initial onset 25 years old Did dieting precede onset of binge eating? yes in wrestling in high school Emotional Eating: Sad / lonely No Anxious / stressed Yes Angry No Happy / celebrating Yes Bored Yes Estimated times per week 3 times per month. Impact of eating / weight issues on relationships and work: Relationships mild Work moderate Compensatory Behavior: Self Induced Vomitting Laxative Abuse Diuretic Abuse Compulsive Exercise Severe Calorie Restriction Comments Last 6 months never never never never never Past Hx never never never in high school wrestling and 2019 before a vacation, not since same as previous. Importance of weight/body shape with regard to self worth: severe Family history of Binge Eating: bothers have have had the surgery, both parents big' Background Information: * Family of Origin Pt was born and raised in [place]. Relationship with parents: great Relationship with siblings: Great Two have overdosed and . * Marital Family/Significiant Relationships Never . Not in relationship. 13 Male son, amazing, full custody, has a muscular dystrophy. * Education/Employment Graduated high school? 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 Taking care of disabled son Parents health. * Coping Strategies Time with his son. Play video games Sports. Has not learned any coping. Music. Good support system. * Leisure Time with son. Sports. * Consistent Exercise Not recently. Now has home gym. Plans to start using this. History of Present Illness (Psychological): * Have you ever been diagnosed with any mental health condition? No * Have you ever been in counseling or psychotherapy? No * Have you ever been prescribed any psychotropic medications? No * Current psychotropic medications: none * Past psychotropic medications: none * Any known family history of Psychological diagnosis? Yes Brothers had addictions. * Have you ever been admitted to an Inpatient Psychiatric Unit? No Major Depression Current mood: good. Denies depressive episodes. Depressed Mood No Anhedonia No Weight loss, gain, or decreased appetite Yes Insomnia or hypersomnia every day No Psychomotor agitation or retardation No Fatigue or lost of energy No Feelings of worthlessness or inappropriate guilt Yes, about his weight, hair, teeth. Poor concentration or indecisiveness No Recurrent thoughts of No 5 or more symptoms in a 2 week period with either depressed mood or anhedonia No Manic Symptoms: History of diagnosis or treatment of this disorder. No Anxiety Symptoms: Details Panic Disorder No Generalized Anxiety No Obsessive Compulsive Disorder No Phobia No Panic Disorder: Recurrent abrupt surges of intense fear or intense discomfort that peaks in minutes. No Generalized Anxiety Disorder: Excessive anxiety and worry, occurring more days than not, for at least 6 months, about multiple events or activities No It is difficult to control the worry No Obsessive Compulsive Disorder Symptoms: Details Cleaning None Counting None Checking None Arranging None Rituals None Time spent daily - obsessions None Severity of distress associated with obsessions N/A Degree of impairment caused by obsessions N/A Time spent daily - compulsions None Severity of distress associated with compulsions N/A Degree of impairment caused by compulsions N/A Posttraumatic Stress Disorder Symptoms: Intrusive thoughts, images, memories Yes Nightmares Yes Flashbacks No Emotional arousal to triggers No Physiological arousal to triggers Yes Efforts to avoid thoughts, feelings, physical sensations Yes Efforts to avoid activities, places, people, situations Yes Dissociative amnesia No Negative expectations about self, others, world No Persistent distorted blame Yes Pervasive negative emotional state No Decreased interest or participation No Detachment / estrangement from others Yes Numbing - unable to experience positive emotions No Irritable or aggressive behavior No Reckless or self destructive behavior No Hypervigilance No Exaggerated startle response No Poor concentration No Sleep disturbance Yes Attention Deficit Hyperactivity Disorder Symptoms: History of diagnosis or treatment of this disorder: No Psychosis Symptoms: Hallucinations No Delusions No Thought disorder No Catatonia No Substance Use: Caffeine Is cutting back, still one can per day of dt mt [employer]. Tobacco Was smoking daily until 5 weeks ago. Still using vape pen Alcohol One time last two years. Marijuana 0 Cocaine 0 Heroin / Opioids 0 Other Drugs 0 Have you ever been in drug or alcohol treatment. No Any history of abuse of prescriptions medications. No Clinical Observations and Mental Status: Appearance: appropriate Mood: normal Affect: appropriate Motor Activity: normal Speech: normal Attention: normal Orientation: person, place, time and situation Eye Contact: good Thought Process: normal Cognitive Impairment: none Suicidal Ideation: denied by patient Homicidal Ideation:denied by patient Hallucination: none Delusion: none Memory: intact Insight: good Judgment: good Impulse Control: intact Interview Behavior: cooperative Test Results: * [place] Multiphasic Personality Inventory - 2 (MMPI-2) Validity Scales T-Scores VRIN 54 LEXI 50 F 55 FB 42 FP 57 FBS 46 L 52 K 52 S 58 Clinical Scales T-Scores Hs 46 D 64 Hy 45 Pd 60 Mf 79 Pa 52 Pt 57 Sc 52 Ma 59 Si 50 Valid profile. Pt may be reporting some sexual problems or concerns. * Binge Eating Scale Raw Score 18 The patient's responses to this scale are consistent with self report and indicative of binge eating disorder. The patient endorsed the following: Eats quickly then feels uncomfortably full. Eats a forbidden food on a diet then feels he blew it. Overeats monthly. Overeats at night then is not hungry in the morning. If snacking heavily will skip regular meals. ICD 10 Diagnosis: ICD-10-CM 1. Binge-eating disorder, mild F50.81 2. Adjustment disorder with mixed disturbance of emotions and conduct F43.25 Conclusions and Recommendations: Angelique Mathew was referred by Kaylyn Osullivan CNP and the [facility] for psychological evaluation to determine their suitability for bariatric surgery. 1. Emotional eating may be an issue. Often boredom. Patient should make a written list of adaptive behaviors to perform in replacement of boredom eating. 2. This patient should learn and practice adaptive coping and relaxation skills. This will be discussed at our feedback session. Examples include but are not limited to: Deep breathing exercises. Progressive muscle relaxation. Guided imagery. Meditation. 3. Has plan to get back into exercise. Check on this. 4. Pt needs to attend counseling to address son, brothers, self esteem, and doing all he can to do the best with bariatric surgery. Develop a new mindset about food. Pt should attend at least 2 sessions of counseling before returning to see me for feedback. Pt should sign a release for Dr. Stephen Blanco's evaluation to be sent to their counselor of choice. Pt should sign a release for their mental health notes to be sent to Dr. Stephen Blanco for review prior to the feedback session. 5. I will review this patient's progress on the above at feedback. Prognosis for clearance at feedback is good. Stephen Blanco PsyD documented in this encounter [facility] 09-04-2021 Instructions Mili Torres, MICHELLE - 09/04/2021 1:12 PM EDT OUTPATIENT BARIATRIC INITIAL ASSESSMENT Referring Provider: Kaylyn Osullivan CNP Nutrition Assessment Anthropometrics: Ht Readings from Last 1 Encounters: 07/16/21 1.803 m (5' 11 ) Wt Readings from Last 3 Encounters: 09/04/21 134.5 kg (296 lb 9.6 oz) 07/16/21 (!) 139.6 kg (307 lb 12.8 oz) [place] body weight: 75.3 kg (166 lb 0.1 oz) Adjusted ideal body weight: 99 kg (218 lb 3.9 oz) % IBW: 160% Body mass index is 41.37 kg/m . Goals after surgery: 205-215# Calorie goal for weight loss: 8754-2334 kcals/day (15-20 kcals/kg adj wt) Protein goal: 86-117 gm/day (1.1-1.5 gm/kg IBW) Nutrition-Related Hx: Appetite: good Allergies/Intolerances: none Current Supplements: No Previous Nutrition Education? Yes, thinks last month sometime, so has started to make some changes and have had some success showing about 11# down. 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 Stated he just bought a [employer] home gym so has the equipment at home to use. /Significant other: No Children living in the house: Yes, 1 son, disabled, he cares for by himself Grocery shopping: own Cooking: own Diet Recall: Usual Intake Meal Time Food/Drink Breakfast rarely Occ pop tart Snack no no Lunch 230 Leftovers or 2 turkey sand on honey wheat w/5-6 slices, brown and small bag chips each or 2c-3c. bowl of cereal w/ 2% milk, 1-2 cup, ray puffs, raisin bran, Snack 4-5 2-3 small pack Fruit gummy Dinner 630 Spaghetti w/ 6-10 1 oz meat balls and 2-3 bread sticks, or 10 chic nuggets and 20 tator tots, sauteed chx breast and 2 whole pot, mashed, 2c-3c. grn beans or caulifower etc. Whole bag of steamables w/ butter. mac and cheese occ w/hotdog or tuna mixed in Snack 9 Pint of Ice cream or whole bag popcorn Quit caffeined pop Fluids: crystal light or diet sprite, sparkling water Mr. Angelique Mathew is a 30 y.o. male here in preparation for weight loss surgery, sleeve vs rny. This is visit 1. Diet recall reveals a consistent meal pattern. (Excess portions, some sweets) both of his brothers have had the surgery, one is compliant one is not. So he sees the consequences. Reviewed basic nutrition: food groups and macronutrients. Emphasized intake of plant foods along with protein. Discussed and encouraged the following: Eat 5-6 meals per day, including breakfast, lunch, dinner, and 2-3 snacks Limit simple sugars to no more than 10 grams/meal or snack Drink at least 64 ounces of hydrating fluids daily Begin regular physical activity: Aim for 150-300 minutes of exercise each week with at least 2 days, 30 minutes each of strength training Eliminate carbonated beverages Eliminate caffeine Eliminate alcohol Eat off smaller plates and bowls Chew food 20-30x/bite Put your utensil down between bites Meals should last 20-30 minutes Stop eating when no longer hungry Separate eating and drinking by 30 minutes Eat protein first, vegetables and fruits second, and whole grains last Pt was provided: List of high protein foods Protein Shake Handout Tips for dining out and special occasions Vitamin sample, protein2.0 sample 1800 kcal bariatric meal plan Lets Get Physical 101 Goals to work on Pt is able to verbalize kcal needs, fluid needs, meal/snack frequency, exercise goals. Pt seems motivated to make necessary changes in preparation for bariatric sx. Pt is not a candidate for online group classes. Pt prefers for nutrition appts to be scheduled independently online and then come in for the review. Lives about an hour away and feels [place] may be closest if possible. PMH: has no past medical history on file. PSH: has a past surgical history that includes tonsillectomy adenoidectomy. Nutrition-Related Labs: No results found for: CHOLESTEROL, TRIG, HDL, LDLCALC, LDLDIRECT No results found for: CRP No results found for: HGBA1C BP Readings from Last 3 Encounters: 07/16/21 136/90 Nutrition Diagnosis NC-3.3 Obesity related to excessive energy intake as evidenced by diet hx and Body mass index is 41.37 kg/m . NB-1.1 Food and nutrition-related knowledge deficit related to eating a well balanced diet, knowledge of nutrient dense foods vs. empty calories and specific calorie needs as evidenced by diet recall, interview with pt. NB-2.1 Physical inactivity related to not exercising as evidenced by pt report. NI-1.5 Excessive Energy Intake related to food-and nutrition-related knowledge deficit concerning energy intake as evidenced by diet recall and pt interview. Nutrition Intervention Short Term Nutrition Goals: Eat 5-6x/day. Consume 86-117 - grams of protein per day. Limit sugar to no more than 10 gm per meal/snack. Drink at least 64 ounces of caffeine free fluid/day. 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 Eat in this order: protein first, vegetable and fruit second and whole grain carbohydrates last. Chew your food 20-30x per bite. Meals should last 20-30 minutes. Don t drink 30 minutes after eating. Put your fork down between bites Stop eating when no longer hungry Monitoring & Evaluation 1. Follow up appointments scheduled for additional nutrition education. 2. Progress is tracked via questionnaire filled out by pt before each nutrition class. 3. Pt is weighed monthly. Time spent with pt: 60 minutes MICHELLE Sanabria Registered Dietitian, Licensed Dietitian 09/04/21 documented in this encounter [facility] 07-16-2021 Miscellaneous Notes Addended by: KAYLYN OSULLIVAN on: 07/18/2021 02:29 PM Modules accepted: Orders documented in this encounter [facility] Evaluation + Plan note No data available for this section General Surgery [place] Evaluation note Diagnosis Essential hypertension- Primary Unspecified essential hypertension Obesity, morbid, BMI 40.0-49.9 Encounter for pre-bariatric surgery counseling and education At risk for obstructive sleep apnea Migraine without status migrainosus, not intractable, unspecified migraine type [facility] Essential hypertension- Primary Unspecified essential hypertension Obesity, morbid, BMI 40.0-49.9 Encounter for pre-bariatric surgery counseling and education At risk for obstructive sleep apnea Migraine without status migrainosus, not intractable, unspecified migraine type [facility] Essential hypertension Unspecified essential hypertension Obesity, morbid, BMI 40.0-49.9 Encounter for pre-bariatric surgery counseling and education At risk for obstructive sleep apnea Migraine without status migrainosus, not intractable, unspecified migraine type [facility] Binge-eating disorder, mild- Primary Adjustment disorder with mixed disturbance of emotions and conduct [facility] Diagnosis ERRONEOUS ENCOUNTER--DISREGARD- Primary [facility] No data available for this section General Surgery [place] Progress note No data available for this section General Surgery [place] Reason for Referral Specialty Diagnoses / Procedures Referred By Contac t Referred To Contact Diagnoses Essential hypertension Obesity, morbid, BMI 40.0-49.9 Encounter for pre-bariatric surgery counseling and education At risk for obstructive sleep apnea Migraine without status migrainosus, not intractable, unspecified migraine type Procedures ECG Kaylyn Osullivan, CUSTOMER SUPPORT ANALYST [address] [place] [address] Referral ID Status Reason Start Date Expiration Date V isits Requested Visits Authorized [id number] New Request 07/18/2021 08/12/2022 1 1 Specialty Diagnoses / Procedures Referred By Contac t Referred To Contact Diagnoses Essential hypertension Obesity, morbid, BMI 40.0-49.9 Encounter for pre-bariatric surgery counseling and education At risk for obstructive sleep apnea Migraine without status migrainosus, not intractable, unspecified migraine type Kaylyn Osullivan, CUSTOMER SUPPORT ANALYST [address] [place] [address] Referral ID Status Reason Start Date Expiration Date V isits Requested Visits Authorized [id number] New Request 07/18/2021 08/12/2022 1 1 Specialty Diagnoses / Procedures Referred By Contac t Referred To Contact Psychology Diagnoses Essential hypertension Obesity, morbid, BMI 40.0-49.9 Encounter for pre-bariatric surgery counseling and education At risk for obstructive sleep apnea Migraine without status migrainosus, not intractable, unspecified migraine type Kaylyn Osullivan, CUSTOMER SUPPORT ANALYST [address] [place] [address] Stephen Blanco, PsyD [address] [place] [address] Referral ID Status Reason Start Date Expiration Date V isits Requested Visits Authorized [id number] New Request 07/18/2021 08/12/2022 1 1 Specialty Diagnoses / Procedures Referred By Contac t Referred To Contact Nutrition and Dietetics Diagnoses Essential hypertension Obesity, morbid, BMI 40.0-49.9 Encounter for pre-bariatric surgery counseling and education At risk for obstructive sleep apnea Migraine without status migrainosus, not intractable, unspecified migraine type Kaylyn Osullivan, CUSTOMER SUPPORT ANALYST [address] [place] [address] Referral ID Status Reason Start Date Expiration Date V isits Requested Visits Authorized [id number] New Request 07/18/2021 08/12/2022 1 1 Summary Purpose Family History No Family History Records FoundNo Family History Records Found Advance Directives No Advanced Directives Records FoundNo Advanced Directives Records Found Additional Source Comments Reason for Visit (unrecogniz ed section and content) Reason Comments Consult Bariatric consult. P t has [employer] Reason Comments Consult Bariatric consult. P t has [employer] Reason Comments Nutrition Consultation Specialty Diagnoses / Procedures Referred By Contac t Referred To Contact Nutrition and Dietetics Diagnoses Essential hypertension Obesity, morbid, BMI 40.0-49.9 Encounter for pre-bariatric surgery counseling and education At risk for obstructive sleep apnea Migraine without status migrainosus, not intractable, unspecified migraine type Kaylyn Osullivan, CUSTOMER SUPPORT ANALYST [address] [place] [address] Referral ID Status Reason Start Date Expiration Date V isits Requested Visits Authorized [id number] New Request 07/18/2021 08/12/2022 15 15 Reason Comments New Patient Eating Disorder Specialty Diagnoses / Procedures Referred By Contac t Referred To Contact Psychology Diagnoses Essential hypertension Obesity, morbid, BMI 40.0-49.9 Encounter for pre-bariatric surgery counseling and education At risk for obstructive sleep apnea Migraine without status migrainosus, not intractable, unspecified migraine type Kaylyn Osullivan, CUSTOMER SUPPORT ANALYST [address] [place] [address] Stephen Blanco, PsyD [address] [place] [address] Referral ID Status Reason Start Date Expiration Date V isits Requested Visits Authorized [id number] Auth Not Needed 07/18/2021 08/12/2022 15 15 Reason Comments Follow-up Eating Disorder Care Teams (unrecognized sec tion and content) 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 Specialty Start Date End Date Andrade Kaur MD [address] [place] [address] PCP - General Family Medicine 07/16/21 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 Specialty Start Date End Date Andrade Kaur MD [address] [place] [address] PCP - General Family Medicine 07/16/21 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 Specialty Start Date End Date Andrade Kaur MD [address] [place] [address] PCP - General Family Medicine 07/16/21 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 This clinical summary was aggregated from multiple sources. Caution should be exercised in using it in the provision of clinical care. This summary normalizes information from multiple sources, and as a consequence, information in this document may materially change the coding, format and clinical context of patient data. In addition, data may be omitted in some cases. CLINICAL DECISIONS SHOULD BE BASED ON THE PRIMARY CLINICAL RECORDS. [facility] [employer] [facility]. provides no warranty or guarantee of the accuracy or completeness of information in this document.
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
--- NOTE | 2023-09-14 09:42 | XR_ITS ---
The [address] [address] Patient Name: ANGELIQUE CARRASCO MRN: [id number] date: 1990 Sex: M Assigned Patient Location: [facility] Current Patient Location: [facility] Accession/Order Number: [id number] Exam Date: 09/14/2023 09:38 Report Date: 09/14/2023 10:16 At the request of: FELICIA LAM Procedure: XR chest 2V EXAM: XR chest 2V HISTORY: Preop exam COMPARISON: None. TECHNIQUE: PA and lateral views of the chest. FINDINGS: The cardiomediastinal silhouette is normal. No focal consolidation is identified. There is no pneumothorax. No pleural effusion is noted. The osseous structures are intact. XR/XR chest 2V IMPRESSION: No acute cardiopulmonary process. Electronically authenticated by: RONN GOODWIN Date: 09/14/2023 10:16
[2023-09-14 10:23] LABS: Basophils Percent Auto 0.3 % (0.2-2.0); Eosinophils Absolute Auto 0.3 10^3/uL (0.0-0.7); Eosinophils Percent Auto 4.3 % (0.9-7.0); Hematocrit 43.2 % (42.0-54.0); Hemoglobin 14.2 g/dL (14.0-18.0); Immature Granulocytes Abs Auto 0.05 10^3/uL (0.00-0.03); Immature Granulocytes Pct Auto 0.8 % (0.0-0.5); Lymphocytes Absolute Auto 1.9 10^3/uL (1.2-3.8); Lymphocytes Percent Auto 29.5 % (20.5-60.0); Mean Corpuscular HGB Conc 32.9 g/dL (29.9-35.2); Mean Corpuscular Volume 82.3 fL (80.0-94.0); Mean Platelet Volume 9.7 fL (9.5-13.5); Monocytes Absolute Auto 0.6 10^3/uL (0.3-0.8); Monocytes Percent Auto 8.9 % (1.7-12.0); Neutrophils Absolute Auto 3.7 10^3/uL (1.4-6.5); Neutrophils Percent Auto 56.2 % (43.0-75.0); Platelet Count 254 10^3/uL (150-450); Red Blood Count 5.25 10^6/uL (4.70-6.10); Red Cell Distribution Width 12.8 % (11.0-15.0); White Blood Count 6.5 10^3/uL (4.0-11.0)
[2023-09-14 16:22] LABS: Anion Gap 15.2; BUN Creatinine Ratio 15.7; Calcium 9.6 mg/dL (8.5-10.1); Carbon Dioxide 25.3 mmol/L (21.0-32.0); Chloride 106 mmol/L (98-107); Estimated GFR (African America >60 (>=60); Estimated GFR (Non-African Ame >60 (>=60); Glucose 92 mg/dL (74-106); Potassium 4.5 mmol/L (3.5-5.1); Sodium 142 mmol/L (136-145)
== END 2023-09-14 08:49 | disposition home or self-care (01) ==
LOC: PST 08:49
PROVIDERS: PCP Family Medicine; Visit Provider Orthopaedic Surgery
DX: Z18.10 Retained metal fragments, unspecified (principal); Z01.812 Encounter for preprocedural laboratory examination; Z01.818 Encounter for other preprocedural examination; S83.241A Other tear of medial meniscus, current injury, right knee, initial encounter
CPT/HCPCS: 71046; 80048; 85025; 93005; G0463

== ENCOUNTER 2023-09-28 11:48 | Day surgery (SDC) | payer OTHER, SELFPAY ==
[2023-09-14 09:24] VITALS: BP 143/98; PULSE 89; TEMP 36.3; O2SAT 97; BMI 43.6
[2023-09-28] VITALS (7 sets, daily range): BP systolic 101–131; BP diastolic 72–85; PULSE 66–75; TEMP 36.4; O2SAT 92–97; BMI 43.7
[2023-09-28] MEDS: LACTATED RINGER'S SOLUTION 1,000 ML 50 ML IV (12:11)
[2023-09-28] MEDS: CEFAZOLIN SODIUM/DEXTROSE,ISO 2 GM/50 ML PIGGYBACK IV (13:51)
[2023-09-28] MEDS: LIDOCAINE HCL 1%-EPINEPHRINE 1:100,000 10 ML MDV INJ (14:39)
[2023-09-28] MEDS: BUPIVACAINE HCL 0.5% PF 50 MG/10 ML VIAL 20 ML INJ (14:39)
--- NOTE | 2023-09-28 15:12 | PM.ORPRC ---
Procedure Note Date of procedure: 09/28/23 Pre-op diagnosis: Right knee medial meniscus tear Post-op diagnosis: same as pre-op Procedure: Operation: Right knee arthroscopic partial medial meniscectomy Operative procedure After informed consent was obtained the patient was brought to the operating room where general anesthetic was administered. Exam under anesthesia of the right knee revealed full range of motion and no instability. The right leg was prepped and draped in the usual sterile fashion. Diagnostic arthroscopy was performed the standard anteromedial and anterolateral arthroscopy portals. In the patellofemoral compartment findings included intact articular cartilage. In the medial compartment there was a large flap tear of the posterior horn of the medial meniscus that was unstable. Using a combination of arthroscopic biters and vivi a 50% partial medial meniscectomy was performed back to stable edge. Articular cartilage in the medial compartment was intact. In the notch the ACL and PCL were intact. Lateral compartment the lateral meniscus was intact as was the articular cartilage. The knee joint was drained of arthroscopy fluid. Portals were closed with an absorbable suture. The joint was infiltrated with 20 mL 0.5% Marcaine plain combined with 10 mL 1% lidocaine with epinephrine. Steri-Strips and a sterile dressing were placed. Patient was awakened and brought to the recovery room in stable condition. There were no intraoperative or immediate postoperative complications. Anesthesia: General-LMA Surgeon: Js Fox Estimated blood loss (mL): 5 Pathology: none sent Condition: stable Disposition: PACU
== END 2023-09-28 16:00 | disposition home or self-care (01) ==
PROVIDERS: PCP Family Medicine; Visit Provider Orthopaedic Surgery
PROC: (CPT 1400; principal; 2023-09-28 13:00)
DX: S83.241A Other tear of medial meniscus, current injury, right knee, initial encounter (principal); X50.0XXA Overexertion from strenuous movement or load, initial encounter; Z87.891 Personal history of nicotine dependence
CPT/HCPCS: 29881; 36415; J1094; J2704